=== PATIENT | male | born 1980 | race Caucasian/White ===

== ENCOUNTER 2021-08-09 13:30 | Outpatient (CLI) | payer BC | END 2021-08-09 13:31 | disposition home or self-care (01) | LOC: RAD-FRANK 13:30 | PROVIDERS: ATTEND Internal Medicine Rheumatology | DX: M54.2 Cervicalgia (principal) | CPT/HCPCS: 72052 ==

== ENCOUNTER 2021-08-15 08:18 | Outpatient (CLI) | payer BC | END 2021-08-15 08:19 | disposition home or self-care (01) | LOC: RAD-FRANK 08:18 | PROVIDERS: ATTEND Nurse Practitioner Family | DX: S29.011A Strain of muscle and tendon of front wall of thorax, initial encounter (principal) | CPT/HCPCS: 71046 ==

== ENCOUNTER 2021-08-29 13:01 | Outpatient (CLI) | payer BC | END 2021-08-29 13:02 | disposition home or self-care (01) | LOC: MRI 13:01 | PROVIDERS: ATTEND Internal Medicine Rheumatology | DX: M54.2 Cervicalgia (principal); M50.321 Other cervical disc degeneration at C4-C5 level | CPT/HCPCS: 72141 ==

== ENCOUNTER 2024-01-27 09:25 | Outpatient (CLI) | payer BC | END 2024-01-27 09:26 | disposition home or self-care (01) | LOC: ULT 09:25 | PROVIDERS: ATTEND Nurse Practitioner Family | DX: R79.89 Other specified abnormal findings of blood chemistry (principal); K76.0 Fatty (change of) liver, not elsewhere classified; R16.1 Splenomegaly, not elsewhere classified | CPT/HCPCS: 76700 ==

== ENCOUNTER 2024-07-29 10:04 | Outpatient (CLI) | payer BC ==
[2024-07-29 11:46] LABS: #Basophils Less than 0.03 10x3/uL (0.0-0.2); %Basophils 0.2 % (0.0-1.0); %Eosinophils 1.8 % (0.0-10.0); %Monocytes 8.6 % (0.0-10.0); %Neutrophils 51.5 % (42.0-75.0); Hematocrit 43.5 % (42.0-52.0); Hemoglobin 15.9 g/dL (14.0-18.0); Mean Corpuscular HGB CONC 36.6 g/dL (32.0-36.0); Mean Corpuscular Hemoglobin 32.8 pg (27.0-31.0); Mean Corpuscular Volume 89.7 fL (78.0-98.0); Platelet Count 243 10x3/uL (130-400); RBC Distribution Width 12.5 % (11.5-14.5); Red Blood Cell (RBC) Count 4.85 mill/uL (4.70-6.10)
[2024-07-29 11:55] LABS: Bacteria/HPF None Seen HPF (None Seen); Bilirubin Negative (Negative); Blood, Urine 1+ (Negative); Clarity Clear (Clear); Glucose, Urine (Dipstick) Normal (Negative); Ketone, Urine Negative (Negative); Leukocyte Negative Leu/uL (Negative); Nitrite Negative (Negative); Protein, Urine (Dipstick) Negative (Neg-Trace); Specific Gravity, Urine 1.013 (1.002-1.036); Squamous Epithelial None Seen HPF (0-3); Urobilinogen Normal mg/dL (Less than 2); WBC/HPF 0-3 HPF (0-3)
[2024-07-29 12:02] LABS: INR-International Normal Ratio 0.9; Prothrombin Time 12.4 sec (12.0-14.7)
[2024-07-29 12:03] LABS: Anion Gap 12 mmol/L (10-20); BUN (Urea Nitrogen) 12 mg/dL (8.9-20.6); Calc. Creatinine Clearance 0 mL/min (70-130); Calcium 9.5 mg/dL (7.8-10.44); Carbon Dioxide 28 mmol/L (22-29); Chloride 104 mmol/L (98-107); Estimated GFR 116; Glucose 106 mg/dL (70-105); Potassium 3.1 mmol/L (3.5-5.1); Sodium 141 mmol/L (136-145)
[2024-07-29 12:05] LABS: ALT (SGPT) 55 U/L (Less than 45); AST (SGOT) 37 U/L (11-34); Albumin 4.4 g/dL (3.1-4.5); Alkaline Phosphatase 99 U/L (40-110); Bilirubin, Direct 0.2 mg/dL (0.1-0.3); Bilirubin, Total 0.6 mg/dL (0.3-1.2); Protein, Total 7.3 g/dL (6.0-8.3)
== END 2024-07-29 10:05 | disposition home or self-care (01) ==
LOC: LABBT 10:04
PROVIDERS: ATTEND Urology
DX: Z01.818 Encounter for other preprocedural examination (principal); N20.0 Calculus of kidney
CPT/HCPCS: 80048; 80076; 81001; 85025; 85610; 85730; 87086; 93005; 93010

== ENCOUNTER 2025-02-10 13:40 | Outpatient (CLI) | payer BC | END 2025-02-10 13:41 | disposition home or self-care (01) | LOC: ULT 13:40 | PROVIDERS: ATTEND Nurse Practitioner Family | DX: M79.604 Pain in right leg (principal); M79.9 Soft tissue disorder, unspecified ==